=== PATIENT | male | born 1945 | race Caucasian/White ===

== ENCOUNTER 2017-06-12 20:13 | Inpatient (IN) | payer MEDICARE, OTHER ==
[~2017-06-12] VITALS: Ht 177.8 cm; Wt 79.4 kg
[2017-06-12] MEDS ORDERED: MIRT15TA PO (20:36)
[2017-06-12] MEDS ORDERED: OLAN5TAB3 PO (20:36)
--- NOTE | 2017-06-12 20:44 | NUR ---
Pt wheeled to room via w/c. Pt changed into gown and placed on monitor. NSR. Per caregiver pt has had dark colored vomit and foul smelling BM with abd pain. UA collected and sent. Dr. Samuel at bedside for MSE
[2017-06-12 20:56] LABS: *BILIRUBIN,URIN NEGATIVE (NEGATIVE); *BLOOD, URINE 1+ (NEGATIVE); *CLARITY,URINE SLIGHTLY CLOUDY (CLEAR); *COLOR,URINE YELLOW (YELLOW); *KETONES,URINE NEGATIVE (NEGATIVE); *UROBILINOGEN,URINE 0.2 E.U./dl (NORMAL); LEUKOCYTE ESTERASE ,URINE 1+ (NEGATIVE); NITRITE, URINE NEGATIVE (NEGATIVE); PH,URINE 5.5 (5.0-8.0); UGLUCOSE NEGATIVE (NEGATIVE)
[2017-06-12] MEDS ORDERED: ONDANSETRON IV *ER 4 MG/2 ML VIAL IV ONE (21:00)
[2017-06-12 21:12] LABS: *PROTEIN,URINE 3+ (NEGATIVE)
[2017-06-12 21:13] LABS: BACTERIA,URINE MANY /HPF (NONE SEEN); MUCUS,URINE FEW /LPF (0-FEW); SQUAMOUS EPITHELIAL CELL,UR FEW /HPF (NONE SEEN); TRANSITIONAL EPI CELLS,URINE FEW /LPF (NONE SEEN); WBC,URINE 80-100 /HPF (0-3)
[2017-06-12 21:18] LABS: BASOPHILS # (AUTO) 0.1 K/uL (0.0-8.0); BASOPHILS % (AUTO) 0.7 % (0.0-2.0); EOSINOPHILS % (AUTO) 0.4 % (0.0-7.0); HEMATOCRIT 33.8 % (36.7-47.1); HEMOGLOBIN 11.1 g/dL (12.5-16.3); LYMPHOCYTES # (AUTO) 1.4 K/uL (20.0-40.0); LYMPHOCYTES % (AUTO) 15.7 % (20.5-51.5); MEAN CORPUSCULAR HEMOGLOBIN 30.2 uug (23.8-33.4); MEAN CORPUSCULAR HGB CONC 33 g/dL (32.5-36.3); MEAN CORPUSCULAR VOLUME 92.4 fL (73.0-96.2); MONOCYTES # (AUTO) 0.9 K/uL (2.0-10.0); MONOCYTES % (AUTO) 10.2 % (0.0-11.0); NEUTROPHILS # (AUTO) 6.4 K/uL (1.8-8.9); PLATELET COUNT (AUTO) 219 K/uL (152-348); RED BLOOD CELL COUNT(AUTO) 3.66 MIL/uL (4.06-5.63); WHITE BLOOD COUNT (AUTO) 8.7 K/uL (3.6-10.2)
[2017-06-12] MEDS ORDERED: ONDANSETRON 4 MG/2 ML VIAL ONE (21:18)
[2017-06-12 21:22] LABS: CARBON DIOXIDE 24 mmol/L (21-32); CHLORIDE 112 mmol/L (98-107); CREATININE 3.7 mg/dL (0.6-1.3); GLUCOSE 97 mg/dL (74-106); POTASSIUM 4.6 mmol/L (3.5-5.1); UREA NITROGEN, BLOOD 52 mg/dL (7-18)
[2017-06-12 21:28] LABS: ALANINE AMINOTRANSFERASE 21 U/L (16-63); ALKALINE PHOSPHATASE 84 U/L (50-136); ASPARTATE AMINOTRANSFERASE 26 U/L (15-37); BILIRUBIN,DIRECT 0.1 mg/dL (0.0-0.2); BILIRUBIN,TOTAL 0.4 mg/dL (0.2-1.0); LIPASE 104 U/L (73-393); TOTAL PROTEIN, SERUM 7.5 g/dL (6.4-8.2)
--- NOTE | 2017-06-12 21:45 | NUR ---
Pt resting in position of comfort for self with eyes closed, resp even and unlabored. No obvious signs of distress. Awaiting radiology results.
[2017-06-12] MEDS ORDERED: PIPERACILLIN/TAZOBACTAM/D5W 2.25 G in PREMIXED 1 EACH IV STA (21:59)
--- NOTE | 2017-06-12 22:55 | NUR ---
ABT infusion completed, no adverse reactions noted. Pt resting in position of comfort for self.
[2017-06-12] MEDS ORDERED: PIPERACILLIN/TAZOBACTAM/D5W 50 ML ONE (23:18)
--- NOTE | 2017-06-12 23:22 | NUR ---
EPIC CALLED. BELLOWS ASSEMBLER PAGED.
--- NOTE | 2017-06-12 23:33 | NUR ---
ABT infusion started, will monitor for any adverse reactions. Indwelling bradley placed, pt tolerated well. Pt reposition for comfort. Admission pending.
--- NOTE | 2017-06-12 23:45 | NUR ---
Epic conveyor system operator paged for Dr. Samuel
--- NOTE | 2017-06-12 23:47 | NUR ---
Dr. Samuel speaking with Dr. Easton.
--- NOTE | 2017-06-13 00:41 | NUR ---
Report given to DYLAN White. Preparing to transfer pt to the floor.
[2017-06-13] MEDS ORDERED: Z GUARD REMEDY PASTE 57 GM TUBE TOP PRN (01:00)
[2017-06-13] MEDS ORDERED: ACETAMINOPHEN 325 MG TABLET PO PRN (01:00)
[2017-06-13] MEDS: PIPERACILLIN/TAZOBACTAM/D5W 50 ML IV SCH ×2 (01:00→06:02)
[2017-06-13] MEDS ORDERED: ONDANSETRON 4 MG/2 ML VIAL IV PRN (01:00)
[2017-06-13] MEDS ORDERED: HYDROCODONE/APAP 5-325MG TABLET PO PRN (01:00)
[2017-06-13] MEDS ORDERED: MAGNESIUM HYDROXIDE 30 ML LIQUID UDC PO PRN (01:00)
--- NOTE | 2017-06-13 01:20 | NUR ---
Pt arrived in [facility] alert awake in no acute distress. Hep lock #22 to right wrist patent and intact. Able to follow simple commands. Denies any pain but some discomfort to back. Chronic left leg weakness noted. F/c intact. Continue to monitor. Pt to start 1/2 NS @75ml/hr. Awaiting MD orders. Continue to monitor. 3 side rails raised and call light placed within reach. No s/s of resp distress.
[2017-06-13 02:00] VITALS: BP 142/70
[2017-06-13] MEDS: IV 1/2NS 1000 ML 1,000 ML IV PRN ×2 (02:30→17:42)
[2017-06-13 04:00] VITALS: BP 128/58
[2017-06-13] MEDS ORDERED: PIPERACILLIN SODIUM/TAZO 3.375 GM VIAL ONE (05:56)
--- NOTE | 2017-06-13 06:00 | NUR ---
Pt in room asleep in no acute distress. Continuing on IV hydration and started on Zosyn IV abx. Denies any pain, discomfort, n/v. F/c intact. 3 side rails elevated and encouraged fluid intake. Continue to monitor. V/s are WNL.
[2017-06-13] MEDS: MIRTAZAPINE 15 MG TABLET PO SCH (09:04)
[2017-06-13] MEDS: OLANZAPINE 5 MG TABLET PO SCH ×2 (09:06→17:37)
[2017-06-13 11:30] VITALS: BP 129/60
[2017-06-13] MEDS: PIPERACILLIN/TAZOBACTAM/D5W 2.25 G in PREMIXED 1 EACH IV SCH ×2 (14:12→21:16)
[2017-06-13 15:56] VITALS: BP 127/71
--- NOTE | 2017-06-13 19:30 | NUR ---
PT IN ROOM ALERT AWAKE IN NO ACUTE DISTRESS. ABLE TO FOLLOW SIMPLE COMMANDS WITHOUT DIFFICULTY. F/C IN PLACE. NO REACTION TO CURRENT ZOSYN ABX IV THERAPY. 3 SIDE RAILS RAISED. DENIES ANY PAIN, N/V, OR DISCOMFORT AT THIS TIME. CONTINUE TO MONITOR. CALL LIGHT PLACED WITHIN REACH.
[2017-06-13 20:00] VITALS: BP 124/69
--- NOTE | 2017-06-14 01:00 | NUR ---
Pt asleep in room in no acute distress. No reaction to Zosyn abx IV therapy. Continue to monitor.
--- NOTE | 2017-06-14 05:00 | NUR ---
Pt alert awake in room in no acute distress. F/c intact draining output up to 500cc. Denies any pain, nausea, or vomitting since admission. Continuing IV fluids and Zosyn abx. 3 side rails raised. Call light within reach and HOB elevated 20 degrees. Continue to monitor.
[2017-06-14] MEDS: PIPERACILLIN/TAZOBACTAM/D5W 2.25 G in PREMIXED 1 EACH IV SCH ×2 (05:02→14:00)
[2017-06-14 06:38] VITALS: BP 132/68
[2017-06-14 07:01] LABS: BASOPHILS % (AUTO) 0.6 % (0.0-2.0); HEMATOCRIT 34.7 % (36.7-47.1); HEMOGLOBIN 11.3 g/dL (12.5-16.3); LYMPHOCYTES # (AUTO) 1.2 K/uL (20.0-40.0); MEAN CORPUSCULAR HGB CONC 32 g/dL (32.5-36.3); MONOCYTES # (AUTO) 0.6 K/uL (2.0-10.0)
[2017-06-14 07:15] LABS: EOSINOPHILS # (AUTO) 0.3 K/uL (0.0-0.7); EOSINOPHILS % (AUTO) 5.8 % (0.0-7.0); MEAN CORPUSCULAR HEMOGLOBIN 29.9 uug (23.8-33.4); MEAN CORPUSCULAR VOLUME 92.1 fL (73.0-96.2); MONOCYTES % (AUTO) 10.2 % (0.0-11.0); NEUTROPHILS # (AUTO) 3.6 K/uL (1.8-8.9); NEUTROPHILS % (AUTO) 62.4 % (38.5-71.5); PLATELET COUNT (AUTO) 191 K/uL (152-348); RED BLOOD CELL COUNT(AUTO) 3.77 MIL/uL (4.06-5.63); WHITE BLOOD COUNT (AUTO) 5.8 K/uL (3.6-10.2)
--- NOTE | 2017-06-14 07:30 | NUR ---
Pt asleep in room in no acute distress. abx IV therapy. Continue to monitor.
[2017-06-14 07:40] LABS: ALANINE AMINOTRANSFERASE 17 U/L (16-63); ALKALINE PHOSPHATASE 77 U/L (50-136); ASPARTATE AMINOTRANSFERASE 30 U/L (15-37); BILIRUBIN,TOTAL 0.4 mg/dL (0.2-1.0); CARBON DIOXIDE 22 mmol/L (21-32); CHLORIDE 105 mmol/L (98-107); CHOLESTEROL 131 mg/dL (<200); CREATININE 3.4 mg/dL (0.6-1.3); GLUCOSE 69 mg/dL (74-106); HDL CHOLESTEROL 38 mg/dL (40-60); MAGNESIUM 1.9 mg/dL (1.8-2.4); PHOSPHOROUS 4.1 mg/dL (2.5-4.9); POTASSIUM 4.4 mmol/L (3.5-5.1); TOTAL PROTEIN, SERUM 7.1 g/dL (6.4-8.2); TRIGLYCERIDES 75 MG/DL (30-150); UREA NITROGEN, BLOOD 45 mg/dL (7-18)
[2017-06-14 08:00] LABS: CREATINE KINASE, TOTAL 214 U/L (39-308)
[2017-06-14] MEDS: MIRTAZAPINE 15 MG TABLET PO SCH (08:13)
[2017-06-14] MEDS: OLANZAPINE 5 MG TABLET PO SCH ×2 (08:13→16:06)
[2017-06-14] MEDS: IV 1/2NS 1000 ML 1,000 ML IV PRN (08:14)
[2017-06-14 08:22] LABS: THYROID STIMULATING HORMONE 0.448 mIU/mL (0.358-3.740)
[2017-06-14 11:13] LABS: *BILIRUBIN,URIN NEGATIVE (NEGATIVE); *BLOOD, URINE 1+ (NEGATIVE); *CLARITY,URINE CLEAR (CLEAR); *COLOR,URINE LIGHT YELLOW (YELLOW); *KETONES,URINE NEGATIVE (NEGATIVE); *PROTEIN,URINE 2+ (NEGATIVE); *UROBILINOGEN,URINE 0.2 E.U./dl (NORMAL); LEUKOCYTE ESTERASE ,URINE 1+ (NEGATIVE); NITRITE, URINE NEGATIVE (NEGATIVE); PH,URINE 5.5 (5.0-8.0); UGLUCOSE NEGATIVE (NEGATIVE)
[2017-06-14 11:17] VITALS: BP 142/72
[2017-06-14 11:19] LABS: *CREATININE,URINE 28.5 mg/dL (30-125); *URINE TOTAL PROTEIN RANDOM 106.8 mg/dL (<150/24HR)
[2017-06-14 11:50] LABS: BACTERIA,URINE FEW /HPF (NONE SEEN); MUCUS,URINE FEW /LPF (0-FEW); SQUAMOUS EPITHELIAL CELL,UR FEW /HPF (NONE SEEN); WBC,URINE 20-50 /HPF (0-3)
--- NOTE | 2017-06-14 14:00 | NUR ---
PT PULLED THE HEPLOCK ,PER MD PT IS GOING HOME ,NO NEED TO RESTART THE I/V ,ZOSYN I/V NOT GIVEN
[2017-06-14] MEDS ORDERED: CEPH-569 PO (14:08)
--- NOTE | 2017-06-14 14:30 | NUR ---
D/C FOLLY CATHETER PER MD ORDERS.
[2017-06-14 15:33] VITALS: BP 131/81
--- NOTE | 2017-06-14 20:00 | NUR ---
PT DISCHARGED. ALL BELONGS GIVEN TO PT AND CG. V/S T 98.0 P 62 R 18 100% BP 148/79. NO ACUTE DISTRESS NOTED.
[2017-06-17 10:17] LABS: A/G RATIO 0.8 (0.7-1.7); ALBUMIN 2.9 g/dL (2.9-4.4); ALPHA-1-GLOBULIN 0.2 g/dL (0.0-0.4); ALPHA-2-GLOBULIN 0.9 g/dL (0.4-1.0); BETA GLOBULIN 1.1 g/dL (0.7-1.3); GAMMA GLOBULIN 1.2 g/dL (0.4-1.8); GLOBULIN, TOTAL 3.5 g/dL (2.2-3.9); M-SPIKE Not Observed g/dL (Not Observed)
== END 2017-06-14 20:10 | DRG 871 ==
LOC: ER 20:14 → MED 23:40
PROVIDERS: ADMIT Nurse Practitioner Acute Care; ATTEND Nurse Practitioner Acute Care
DX: A41.9 Sepsis, unspecified organism (principal); N17.0 Acute kidney failure with tubular necrosis; N39.0 Urinary tract infection, site not specified; E46 Unspecified protein-calorie malnutrition; E86.0 Dehydration; R31.9 Hematuria, unspecified; N20.0 Calculus of kidney; R53.1 Weakness; R80.9 Proteinuria, unspecified; N18.9 Chronic kidney disease, unspecified; D63.1 Anemia in chronic kidney disease; F99 Mental disorder, not otherwise specified; M48.061 Spinal stenosis, lumbar region without neurogenic claudication; Z68.25 Body mass index [BMI] 25.0-25.9, adult
CPT/HCPCS: 36415; 71010; 83690; 83735; 83970; 84100; 84155; 84156; 84165; 84300; 84443; 85025; 87040; 87086; A4663; J2405; J2543; J3490; J7060